=== PATIENT | female | born 1955 | race Caucasian/White ===

== ENCOUNTER 2020-09-21 17:39 | Emergency (ER) | payer MEDICARE, OTHER, SELFPAY ==
--- NOTE | 2020-09-21 17:44 | DI.RAD.S_ITS ---
PROCEDURE: XR FOOT RT MIN 3V INDICATIONS: injury TECHNIQUE: 4 views of the foot were acquired. COMPARISON: [facility] [place], [place], XR FOOT 3VW RT, 08/23/2015, 13:57. FINDINGS: Bones: There is a comminuted fracture involving the majority of the 1st distal phalanx with transverse and longitudinal components extending into the joint line. There is dorsal dislocation and dorsal angulation of the 1st interphalangeal joint. Postsurgical changes are seen at the 1st metatarsophalangeal joint with solid osseous fusion. A metallic screw is seen in the 2nd metatarsal neck. No suspicious bony lesions. Soft tissues: No suspicious soft tissue calcification. IMPRESSION: 1. Dorsal dislocation and dorsal angulation of the 1st interphalangeal joint with a comminuted intra-articular fracture of the 1st distal phalanx. 2. Chronic postsurgical changes at the 1st metatarsophalangeal joint and 2nd metatarsal neck. Dictated by: Alfredo Clemente M.D. on 09/21/2020 at 18:35 Approved by: Alfredo Clemente M.D. on 09/21/2020 at 18:40
[2020-09-21 17:58] VITALS: BP 188/91; PULSE 84; RESP 18; TEMP 36.4; O2SAT 100; BMI 27.8
--- NOTE | 2020-09-21 19:28 | DI.RAD.S_ITS ---
PROCEDURE: XR FOOT RT 2V INDICATIONS: post reduction toe TECHNIQUE: 2 views of the foot were acquired. COMPARISON: [facility], , XR FOOT RT MIN 3V, 09/21/2020, 18:19. FINDINGS: Bones: There has been reduction of the 1st interphalangeal joint with latter day of normal alignment. Comminuted intra-articular fracture of the distal phalanx redemonstrated with minimal step-off at the articular surface. Stable postsurgical changes including 1st metatarsophalangeal fusion and metallic screw at the 2nd metatarsal neck. No suspicious bony lesions. Soft tissues: No suspicious soft tissue calcification. IMPRESSION: Interval reduction of the 1st interphalangeal joint with improved alignment. Comminuted intra-articular fracture of the first distal phalanx redemonstrated. Dictated by: Alfredo Clemente M.D. on 09/21/2020 at 19:47 Approved by: Alfredo Clemente M.D. on 09/21/2020 at 19:49
--- NOTE | 2020-09-21 19:31 | ED.LOWEXIN ---
HPI - Extremity Injury (Lower) <Matt Bansal PA-C - Last Filed: 09/22/20 13:42> General Chief Complaint: Extremity Injury, Lower Stated Complaint: POSS RT FOOT BREAK Time Seen by Provider: 09/21/20 18:45 Source: patient Mode of arrival: Ambulatory Limitations: no limitations History of Present Illness HPI Narrative: Yaa presents today with chief complaint of right great toe pain. She reports that she was on her boat earlier this evening and stubbed her toe. The toe has now been sticking straight up and she has had considerable pain. 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 She has not taken anything to help alleviate her symptoms at this time. She has no other acute concerns or complaints at this time. Related Data Allergies Allergy/AdvReac Type Severity Reaction Status Date / Time morphine AdvReac Verified 09/21/20 17:57 Review of Systems <Matt Bansal PA-C - Last Filed: 09/22/20 13:42> Review of Systems Narrative: As per HPI Patient History <Matt Bansal PA-C - Last Filed: 09/22/20 13:42> Social History Smoking Status: Never smoker Smoking Status: Never smoker Substance Use Type: does not use Exam <Matt Bansal PA-C - Last Filed: 09/22/20 13:42> Narrative Exam Narrative: Exam Narrative: Const General: cooperative, healthy appearing, comfortable, no acute distress, well developed and well groomed Nutritional Appearance: average body habitus Orientation: alert and oriented x3 HENMT Head: normal to inspection and atraumatic Ears: hearing grossly normal bilaterally Nose: external nose normal and nares normal Face and sinus: normal facial exam Neck Neck: normal visual inspection and supple Resp Effort & Inspection: normal respiratory effort, able to speak in complete sentences, no audible wheezes, not labored, no nasal flaring and no respiratory distress Neuro General: alert, oriented x3, tone normal and moves all extremities Cognition: normal cognition Speech: speech normal Extremities Lower extremities exposed. Right great toe is dorsally angulated and deformed. Capillary refill is normal and sensation is intact. No other obvious injuries identified. Skin is intact. Psych Appearance: grossly normal and well kempt Mental Status: mental status grossly normal Speech and Movement: speech and movement normal Mood: congruent mood Affect: normal affect Initial Vital Signs Initial Vital Signs: Vital Signs Temperature 97.5 F L 09/21/20 17:58 Pulse Rate 84 09/21/20 17:58 Respiratory Rate 18 09/21/20 17:58 Blood Pressure 188/91 H 09/21/20 17:58 Pulse Oximetry 100 09/21/20 17:58 <DO Tawny Bobo Last Filed: 09/23/20 03:40> Initial Vital Signs Initial Vital Signs: Vital Signs Temperature 97.5 F L 09/21/20 17:58 Pulse Rate 84 09/21/20 17:58 Respiratory Rate 18 09/21/20 17:58 Blood Pressure 188/91 H 09/21/20 17:58 Pulse Oximetry 100 09/21/20 17:58 Procedures <PETTY Gallo Last Filed: 09/22/20 13:42> Orthopedic Fracture Reduction Fracture #1: Side: right Fracture Reduction Location: toe Analgesia: nerve block Post Reduction X-rays Demonstrate: acceptable reduction Post-reduction neuro exam: other (nerve blocked) Post-reduction vascular exam: intact and no change Splint Applied: Yes Patient Tolerated Procedure: Well Course <PETTY Gallo Last Filed: 09/22/20 13:42> Orders Ordered: Discontinued Medications Bupivacaine HCl (Bupivacaine 0.5% (Pf) Vial) 5 ml SUBCUT NOW ONE Stop: 09/21/20 18:47 Last Admin: 09/21/20 19:45 Dose: 5 ml Documented by: MONICA Vital Signs Vital signs: Vital Signs - 8 hr 09/21/20 17:58 Temperature 97.5 F L Pulse Rate 84 Respiratory Rate 18 Blood Pressure 188/91 H Pulse Oximetry 100 <DO Tawny Bobo Last Filed: 09/23/20 03:40> Orders Ordered: Discontinued Medications Bupivacaine HCl (Bupivacaine 0.5% (Pf) Vial) 5 ml SUBCUT NOW ONE Stop: 09/21/20 18:47 Last Admin: 09/21/20 19:45 Dose: 5 ml Documented by: MONICA Vital Signs Vital signs: Vital Signs - 8 hr 09/21/20 17:58 Temperature 97.5 F L Pulse Rate 84 Respiratory Rate 18 Blood Pressure 188/91 H Pulse Oximetry 100 MDM - Extremity Injury (Lower) <PETTY Gallo Last Filed: 09/22/20 13:42> MDM Narrative Medical decision making narrative: No evidence of significant vascular injury or nerve injury at this time. After consultation with Orthopedics, she will follow up in clinic after immobilization. Pain medication was offered but patient elected to just alternate between acetaminophen and ibuprofen. Return precautions are discussed. Patient verbalizes understanding and agrees to plan and has no further concerns at this time. Thank you A [id number] system was used with the dictation of this note. Please disregard any spelling or grammatical errors. Discharge Plan Departure Patient Disposition: Home Clinical Impression: Closed fracture of toe Qualifiers: Encounter type: initial encounter Toe: great toe Phalanx: unspecified phalanx Fracture alignment: displaced Laterality: right Qualified Code(s): S92.401A - Displaced unspecified fracture of right great toe, initial encounter for closed fracture Activity Restrictions/Additional Instructions: It was very nice to meet you this evening. Please keep your foot in the surgical shoe and follow-up with the orthopedist by calling them on Wednesday. You can alternate between acetaminophen or ibuprofen as needed for pain management. Please return if you have any other acute concerns or complaints. Thank you Matt Bansal PA-C Referrals: Matt Bansal PA-C [Emergency Provider] - Jonathon Hendrix MD [Physician] - As soon as possible (Call on wednesday to schedule an appointment) Missy Cotto MD [Primary Care Provider] -
[2020-09-21] MEDS: BUPIVACAINE 0.5% (PF) VIAL 5 ML SUBCUT (19:45)
--- NOTE | 2020-09-21 20:53 | PC.NURSE ---
2044 Per patient, doctor numbed and then reduced the fractured and dislocated toe then placed a Post op Shoe.
[2020-09-21 20:54] VITALS: BP 188/84; PULSE 68; RESP 17; O2SAT 98
== END 2020-09-21 20:56 | disposition home or self-care (01) ==
PROVIDERS: Emergency Provider Physician Assistant; PCP Internal Medicine Geriatric Medicine
DX: S92.401A Displaced unspecified fracture of right great toe, initial encounter for closed fracture (principal); W22.8XXA Striking against or struck by other objects, initial encounter; Y92.814 Boat as the place of occurrence of the external cause
CPT/HCPCS: 28495; 73620; 73630; 99281; 99283